=== PATIENT | female | born 1990 | race American Indian/Alaskan Native ===

== ENCOUNTER 2018-05-04 08:55 | Inpatient (IN) | payer MEDICAID ==
[2018-05-04] MEDS ORDERED: POLYCILLIN/NS 2 GM/100 ML 2 GM/100 ML BAG IV ONE (11:15)
[2018-05-04] MEDS: LACTATED RINGERS 1,000 ML IV SCH ×2 (11:29→17:15)
[2018-05-04] MEDS: CYTOTEC VG SCH ×2 (11:36→15:20)
[2018-05-04] MEDS: AMPICILLIN/NS 1 GM/50 ML 1 GM/50 ML BAG IV SCH ×2 (15:15→19:13)
[2018-05-04] MEDS ORDERED: SUBLIMAZE IV ONE (15:37)
[2018-05-04] MEDS ORDERED: STADOL ONE (17:43)
[2018-05-04] MEDS: STADOL IV PRN ×2 (17:56→20:22)
[2018-05-04 18:16] LABS: Hematocrit 34.9 % (30.3-42.9); Hemoglobin 11.7 gm/dl (10.1-14.3); Mean Corpuscular HGB Conc 34 % (30-34); Mean Corpuscular Hemoglobin 30 pg (28-32); Mean Corpuscular Volume 90 fl (79-97); Platelet Count 253 K/mm3 (140-440); Red Blood Count 3.89 M/mm3 (3.65-5.03); Red Cell Distribution Width 15.6 % (13.2-15.2)
[2018-05-04] MEDS ORDERED: CERVIDIL VG ONE (18:52)
[2018-05-04] MEDS ORDERED: NARCAN 2 MG/2 ML ONE (21:54)
[2018-05-04] MEDS ORDERED: XYLOCAINE 2% INFILTRATI ONE (21:57)
[2018-05-04] MEDS ORDERED: PITOCin/NS 20 UNIT/1000ML DRIP 20,000 MILLIUNITS/1,000 ML BAG IV ONE (21:57)
[2018-05-04] MEDS ORDERED: NARCAN 2 MG/2 ML IV PRN (21:58)
[2018-05-04] MEDS ORDERED: fentaNYL-BUPIV 2 MCG/ML-0.125% 200 MCG/100 ML BAG EPIDURAL SCH (22:00)
[2018-05-04] MEDS ORDERED: METHERGINE IM ONE ×2 (22:21→22:31)
--- NOTE | 2018-05-04 22:23 | Procedure Note ---
OB Delivery Note - Delivery Date of Delivery: 05/04/18 (@) - Vaginal Delivery presentation: vertex Delivery position: OA Route of delivery: Delivery comments: Called to room for imminent delivery. Physician on the way. Spont del of live male inf over intact perineum @ 2156. Baby placed on maternal chest. Delayed cord clamping. 8/9. Straight cathed for large amount clear yellow urine. Dr Smith at bedside for placental delivery.
--- NOTE | 2018-05-04 22:28 | Event Note ---
Date: 05/04/18 I was called by Nurse Denise at 945p and noted that patient had changed from 1cm to 8-9 cm. I arrived at 1010 and Nurse Windows Security Analyst was in the room and placing a montejo after baby had been born ( see delivery note). I evaluated patient and noted placenta at introitus and delivered an intact placenta with 3 vessel cord. Survey of perineum showed no lacs nor tears. uterine massage and 0.2 methergine given for bleeding. EBL 400cc. Patient tolerated procedure and bonding with baby.
[2018-05-04] MEDS ORDERED: PHENERGAN PO PRN (22:31)
[2018-05-04] MEDS ORDERED: DULCOLAX PR PRN (22:31)
[2018-05-04] MEDS ORDERED: ZOFRAN IV PRN (22:31)
[2018-05-04] MEDS ORDERED: MILK OF MAGNESIA PO PRN (22:31)
[2018-05-04] MEDS ORDERED: BENADRYL PO PRN (22:31)
[2018-05-04] MEDS ORDERED: PHENERGAN PR PRN (22:31)
[2018-05-04] MEDS ORDERED: TYLENOL PO PRN (22:31)
[2018-05-04] MEDS ORDERED: LANSINOH TP PRN (22:31)
[2018-05-04] MEDS ORDERED: TUCKS PAD TP PRN (22:31)
--- NOTE | 2018-05-04 22:38 | History and Physical Report ---
History of Present Illness Date of examination: 05/04/18 Date of admission: 05/04/18 08:55 Chief complaint: iol FOR POST DATES History of present illness: This is a 27 yo at 41 weeks admitted for IOL for postdates. She is apatient of [employer] and has a hx of morbid obesity, anemia on iron, trich treated with flagyl brigida treated with diflucan and GBS +. 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 denies: smoking, alcohol abuse, prescription drug abuse - Obstetrical History Expected Date of Delivery: 04/27/18 Actual Gestation: 41 Week(s) 0 Day(s) : 2 Para: 1 Hx # Term Pregnancies: 1 Number of Pregnancies: 0 Spontaneous Abortions: 0 Induced : 0 Number of Living Children: 1 Medications and Allergies Allergies Allergy/AdvReac Type Severity Reaction Status Date / Time No Known Allergies Allergy Unverified 01/06/14 15:52 Home Medications Medication Instructions Recorded Confirmed Last Taken Type Vits96/Iron Fum/Folic 1 each PO QDAY 05/02/14 05/04/18 04/26/18 10:00 History [ Tablet] HYDROcodone/APAP 5-325 [[place] 1 - 2 each PO Q6H PRN #20 tablet 05/04/1404/26/18 10:00 Rx 5-325 mg TAB] Ibuprofen [Motrin 600 MG tab] 600 mg PO Q6H PRN #30 tablet 05/04/14 04/29/18 10 :00 Rx 1 Ferrous Sulfate [Feosol 325 MG tab] 1 tab PO DAILY 05/04/18 05/04/18 04/27/18 10 :00 History 1 Active Meds: Active Medications Butorphanol Tartrate (Stadol) 2 mg IV Q2H PRN PRN Reason: Labor Pain Last Admin: 05/04/18 20:22 Dose: 2 mg Ephedrine Sulfate (Ephedrine Sulfate) 10 mg IV Q2M PRN PRN Reason: Hypotension Lactated Ringer's (Lactated Ringers) 1,000 mls @ 125 mls/hr IV DIRECT MIKA Last Admin: 05/04/18 17:15 Dose: 125 mls/hr Ampicillin Sodium (Ampicillin/Ns 1 Gm/50 Ml) 1 gm in 50 mls @ 100 mls/hr IV Q4HR MIKA; Protocol Last Admin: 05/04/18 19:13 Dose: 100 mls/hr Fentanyl/Bupivacaine/Sodium Chlor (Fentanyl-Bupiv 2 Mcg/Ml-0.125%) 200 mcg in 100 mls @ 12 mls/hr EPIDURAL TITR MIKA; Protocol Naloxone HCl (Narcan 2 Mg/2 Ml) 0.2 mg IV Q5M PRN PRN Reason: Respiratory sedation Review of Systems All systems: negative - Vital Signs Vital signs: Vital Signs Pulse BP 100 H 122/65 05/04/18 09:32 05/04/18 09:32 Temp Pulse Resp BP Pulse Ox 98.5 F 114 H 18 125/86 97 05/04/18 22:32 05/04/18 22:32 05/04/18 22:32 05/04/18 22:32 05/04/18 20:46 - Physical Exam Breasts: Positive: deferred Cardiovascular: Regular rate, Normal S1 Lungs: Positive: Clear to auscultation, Normal air movement Abdomen: Positive: normal appearance, soft, normal bowel sounds. Negative: distention, tenderness, guarding Genitourinary (Female): Positive: normal external genitalia, normal perenium Vulva: both: normal Vagina: Positive: normal moisture Uterus: Positive: normal size, normal contour Adnexa: both: normal Anus/Rectum: Positive: normal perianal skin Extremities: Positive: normal Deep Tendon Reflex Grade: Normal +2 - Obstetrical FHR: category 1 Cervical Dilatation: 1 Cervical Effacement Percentage: 50 station: -3 Uterine Contraction Pattern: Irregular Uterine Tone Measurement Phase: Contraction Uterine Contraction Intensity: Mild Results Result Diagrams: 05/04/18 09:30 Abnormal lab results 05/04/18 Range/Units 09:30 RDW 15.6 H (13.2-15.2) % All other labs normal. Assessment and Plan A/P HD#1 IOL for postdates GBS + -amp offer epidural start with cytotec expect vaginal delivery
[2018-05-04] MEDS ORDERED: SODIUM CHLORIDE FLUSH SYRINGE 10 ML IV NR (23:00)
[2018-05-04] MEDS ORDERED: CYTOTEC ONE ×2 (23:08→23:10)
[2018-05-04] MEDS ORDERED: CYTOTEC PR ONE (23:08)
[2018-05-05] MEDS: MOTRIN PO SCH ×4 (00:31→18:48)
[2018-05-05] MEDS ORDERED: PITOCin/NS 20 UNIT/1000ML DRIP 20,000 MILLIUNITS/1,000 ML BAG IV ONE (00:35)
[2018-05-05] MEDS ORDERED: PITOCin/NS 20 UNIT/1000ML DRIP 20 UNITS/1,000 ML BAG IV SCH (01:00)
--- NOTE | 2018-05-05 08:33 | Progress Note ---
Assessment and Plan - Patient Problems (1) Vaginal delivery Current Visit: Yes Status: Acute Plan to address problem: patient doing well routine care Subjective - Subjective Date of service: 05/05/18 Interval history: Patient without complaints. States lochia is decreased. Pain controlled Patient reports: appetite normal, voiding normally, pain well controlled : doing well Objective - Vital Signs Latest vital signs: Vital Signs Temp Pulse Resp BP BP Pulse Ox 05/05/18 05:24 18 05/05/18 04:00 99.2 F 87 20 127/77 98 05/05/18 00:31 18 05/05/18 00:30 98.4 F 87 18 124/72 100 05/04/18 23:38 94 H 133/63 05/04/18 23:23 111 H 137/61 05/04/18 23:08 111 H 129/73 05/04/18 23:06 94 H 99 05/04/18 23:04 104 H 18 129/73 99 05/04/18 23:03 108 H 18 129/73 05/04/18 23:01 101 H 99 05/04/18 23:00 96 H 18 125/64 05/04/18 22:56 100 H 99 05/04/18 22:52 105 H 125/64 05/04/18 22:51 107 H 99 05/04/18 22:46 104 H 99 05/04/18 22:41 110 H 100 05/04/18 22:32 98.5 F 114 H 18 125/86 05/04/18 22:26 114 H 125/86 05/04/18 20:52 20 05/04/18 20:46 107 H 97 05/04/18 20:41 105 H 96 05/04/18 20:36 109 H 97 05/04/18 20:32 93 H 94 05/04/18 20:31 106 H 98 05/04/18 20:22 18 05/04/18 20:15 113 H 96 05/04/18 20:10 111 H 97 05/04/18 20:05 118 H 95 05/04/18 20:01 107 H 94 05/04/18 20:00 106 H 93 05/04/18 19:55 104 H 97 05/04/18 19:50 109 H 96 05/04/18 19:45 104 H 98 05/04/18 19:40 99 H 98 08/13/18 19:35 98 H 99 05/04/18 19:30 106 H 96 05/04/18 19:29 98 H 130/71 05/04/18 19:25 103 H 98 05/04/18 19:24 98 F 106 H 130/71 96 05/04/18 19:20 99 H 98 05/04/18 19:14 98.0 F 93 H 18 130/82 98 05/04/18 17:58 93 H 130/82 05/04/18 17:54 98.4 F 93 H 20 130/82 05/04/18 15:51 18 05/04/18 12:14 99 H 98 05/04/18 12:09 96 H 98 05/04/18 12:04 110 H 98 05/04/18 11:59 94 H 98 05/04/18 11:54 109 H 98 05/04/18 11:49 100 H 98 05/04/18 11:44 104 H 98 05/04/18 11:39 95 H 98 05/04/18 11:34 96 H 98 05/04/18 11:29 105 H 99 05/04/18 11:24 108 H 98 05/04/18 11:19 103 H 98 05/04/18 11:14 97 H 98 05/04/18 11:09 91 H 98 05/04/18 11:04 95 H 98 05/04/18 10:59 94 H 98 05/04/18 10:54 99 H 98 05/04/18 10:48 104 H 99 05/04/18 10:43 97 H 98 05/04/18 10:38 99 H 98 05/04/18 10:32 97.5 F L 95 H 16 122/65 98 05/04/18 09:32 100 H 122/65 Intake and Output 05/04/18 05/05/18 05/05/18 22:59 06:59 14:59 Intake Total 770.833 480 Output Total 700 500 Balance 770.833 -220 -500 Intake: IV 770.833 AMPICILLIN/NS 1 GM/50 ML 50 1 gm In 50 ml @ 100 mls/ hr IV Q4HR MIKA Rx#: [id number] Lactated Ringers 1,000 ml 720.833 @ 125 mls/hr IV DIRECT MIKA Rx#:[id number] Oral 480 Output: Urine 700 500 Void 700 500 Other: Total, Intake Amount 240 Total, Output Amount 700 500 # Voids Void 1 Estimated Blood Loss 400 - Exam Abdomen: Present: normal appearance, soft Uterus: Present: normal, firm - Labs Labs: Abnormal lab results 05/04/18 Range/Units 09:30 RDW 15.6 H (13.2-15.2) %
--- NOTE | 2018-05-05 08:35 | Discharge Summary ---
Providers - Providers Date of Admission: 05/04/18 08:55 Date of discharge: 05/06/18 Attending physician: RICHMOND ACUNA MD Primary care physician: RICHMOND ACUNA MD Hospitalization Reason for admission: active labor Delivery: complications: none Discharge diagnosis: IUP at term delivered baby: male Hospital course: Patient admitted in labor and had a precipitous vaginal delivery. uncomplicated Condition at discharge: Good Disposition: DC-01 TO HOME OR SELFCARE - Discharge Diagnoses (1) Vaginal delivery Status: Acute Plan - Discharge Medications Prescriptions: HYDROcodone/APAP 5-325 [[place] 5/325] 1 each PO Q6HR PRN #30 tablet PRN Reason: Pain Ibuprofen [Motrin] 800 mg PO Q8HR PRN #60 tablet PRN Reason: Pain, Mild (1-3) - Provider Discharge Summary Activity: no sex for 6 weeks, no heavy lifting 4 weeks, no strenuous exercise Diet: routine Instructions: routine Additional instructions: [] Smoking cessation referral if applicable(refer to patient education folder for contact #) [] Refer to [facility] Booklet Call your doctor immediately for: * Fever > 100.5 * Heavy vaginal bleeding ( >1 pad per hour) * Severe persistent headache * Shortness of breath * Reddened, hot, painful area to leg or breast * schedule visit in 4 weeks - Follow up plan
[2018-05-05 10:43] LABS: Hematocrit 36.5 % (30.3-42.9); Hemoglobin 12.3 gm/dl (10.1-14.3)
[2018-05-05] MEDS ORDERED: PRENATAL VITAMIN PO ONE (12:43)
[2018-05-05] MEDS ORDERED: COLACE PO SCH (13:00)
[2018-05-06 15:01] VITALS: BP 127/76
== END 2018-05-06 14:00 | disposition home or self-care (01) | DRG 774 ==
LOC: LD 08:55 → OB 05-05 00:24
PROVIDERS: ADMIT Obstetrics & Gynecology; ATTEND Obstetrics & Gynecology
PROC: 10E0XZZ Delivery of Products of Conception, External Approach (ICD-10-PCS; principal; 2018-05-04)
PROC: 3E0234Z Introduction of Serum, Toxoid and Vaccine into Muscle, Percutaneous Approach (ICD-10-PCS; 2018-05-04)
PROC: 3E0P7VZ Introduction of Hormone into Female Reproductive, Via Natural or Artificial Opening (ICD-10-PCS; 2018-05-04)
DX: O48.0 Post-term pregnancy (principal); O98.32 Other infections with a predominantly sexual mode of transmission complicating childbirth; Z3A.41 41 weeks gestation of pregnancy; Z37.0 Single live birth; Z23 Encounter for immunization; Z68.42 Body mass index [BMI] 45.0-49.9, adult; O99.214 Obesity complicating childbirth; E66.01 Morbid (severe) obesity due to excess calories; O99.824 Streptococcus B carrier state complicating childbirth; O99.02 Anemia complicating childbirth; D64.9 Anemia, unspecified; A59.9 Trichomoniasis, unspecified; O98.82 Other maternal infectious and parasitic diseases complicating childbirth; B37.9 Candidiasis, unspecified
CPT/HCPCS: 36415; 85014; 85018; 85027; 86592; 86850; 86900; 86901; 99211; G0463; J0290; J0595; J2210; J2310; J2590; J3010; J7120